=== PATIENT | female | born 1950 | race Hispanic/Latino ===

== ENCOUNTER 2017-01-06 09:38 | Outpatient (CLI) | payer MEDICARE ==
[2017-01-06 10:32] LABS: Anion Gap 17 mmol/L; BUN/Creatinine Ratio 23; Blood Urea Nitrogen 21 mg/dL (7-17); Calcium 9.2 mg/dL (8.4-10.2); Carbon Dioxide 24 mmol/L (22-30); Chloride 106.3 mmol/L (98-107); Glucose 164 mg/dL (65-100); Potassium 4.7 mmol/L (3.6-5.0); Sodium 143 mmol/L (137-145)
--- NOTE | 2017-01-06 15:07 | Cat Scan Report ---
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 Focal areas of calcification in the mass. Superior extent of mass not visualized. 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 Normal aorta and pulmonary arteries. No mediastinal adenopathy. No pleural or pericardial effusion. The visualized portion of the superior vena cava is limited and there is no definite evidence of thrombosis. Calcific mass is identified at the right lung anteriorly and posteriorly at the lower lobe. Seen on series 2 image 69. There is right lower lobe pleural-based calcified 4 cm diameter mass identified. Impression: No definite evidence of superior vena cava thrombosis or obstruction. Additional findings as detailed above.
== END 2017-01-06 09:39 | disposition home or self-care (01) ==
LOC: CT 09:38
PROVIDERS: ATTEND Surgery Vascular Surgery
DX: I82.211 Chronic embolism and thrombosis of superior vena cava (principal); R91.8 Other nonspecific abnormal finding of lung field; E04.9 Nontoxic goiter, unspecified
CPT/HCPCS: 36415; 71260; 80048; Q9967

== ENCOUNTER 2017-07-13 05:48 | Day surgery (SDC) | payer MEDICARE ==
[~2017-07-13 05:48] MED LIST: ANCEF/STERILE WATER 2 GM/20 ML IV NR
[2017-07-13] MEDS ORDERED: NACL BACTERIOSTATIC INFILTRATI ONE (06:51)
[2017-07-13] MEDS ORDERED: DILAUDID IV PRN ×2 (07:33)
[2017-07-13] MEDS ORDERED: DEMEROL IV PRN (07:33)
[2017-07-13] MEDS ORDERED: NARCAN 0.4 MG/1 ML IV PRN (07:33)
[2017-07-13] MEDS ORDERED: ZOFRAN IV PRN (07:33)
[2017-07-13] MEDS ORDERED: TORADOL IV PRN (07:33)
--- NOTE | 2017-07-13 07:33 | Anesthesia Consultation ---
Anesthesia Consult and Med Hx Date of service: 07/13/17 - Airway Anesthetic Teeth Evaluation: Poor ROM Head & Neck: Adequate Mental/Hyoid Distance: Adequate Mallampati Class: Class III Intubation Access Assessment: Probably Good - Pulmonary Exam CTA: Yes - Cardiac Exam Cardiac Exam: RRR - Pre-Operative Health Status ASA Pre-Surgery Classification: ASA3 Proposed Anesthetic Plan: General - Pulmonary Hx Smoking: No SOB: Yes (RELATED TO ASCITES IN ABDOMEN;) Hx Sleep Apnea: No (RENA PRE SCREEN HIGH RISK) - Cardiovascular System Hx Hypertension: Yes (X 25 YRS) - Central Nervous System Hx Psychiatric Problems: No - Endocrine Hx Cirrhosis: Yes (2006 WITH ASCITES/LIVER TRANSPLANT 2016) - Hematic Hx Anemia: Yes (NOT RECENT) - Other Systems Hx Cancer: Yes
--- NOTE | 2017-07-13 07:33 | Anesthesia Day of Surgery ---
Anesthesia Day of Surgery - Day of Surgery Patient Examined: Yes Patient H&P Reviewed: Yes Patient is NPO: Yes
[2017-07-13] MEDS ORDERED: VERSED IV NR (08:00)
[2017-07-13] MEDS ORDERED: LACTATED RINGERS 1,000 ML IV SCH (08:00)
[2017-07-13] MEDS ORDERED: DIPRIVAN 10 MG/ML IV ONE (08:20)
[2017-07-13] MEDS ORDERED: XYLOCAINE MPF 2% ONE (08:36)
[2017-07-13] MEDS ORDERED: SUBLIMAZE ONE (08:37)
--- NOTE | 2017-07-13 10:15 | XRay Report ---
ABDOMEN RADIOGRAPH INDICATION: Kidney stone. COMPARISON: None similar. FINDINGS: Frontal abdominal radiograph demonstrates few right upper quadrant surgical clips. Grossly nonobstructive bowel gas pattern with a nonspecific 3 cm caliber air-containing small bowel segment in the left lower quadrant. No definite focal suspicious calcifications in the expected location of the kidneys. Grossly intact bones. CONCLUSION: Findings, as above. Thank you for the opportunity to participate in this patient's care.
--- NOTE | 2017-07-13 12:51 | Short Stay Summary ---
Short Stay Documentation Date of service: 07/13/17 - History H&P: obtained from office - Allergies and Medications Current Medications: Allergies Tetanus Vaccines and Toxoid [Tetanus Vaccines & Toxoid] Allergy (Severe, Verified 07/03/17 16:29) Swelling bacitracin [From Neosporin Plus] Allergy (Verified 07/03/17 16:29) Swelling neomycin [From Neosporin Plus] Allergy (Verified 07/03/17 16:29) Swelling polymyxin B [From Neosporin Plus] Allergy (Verified 07/03/17 16:29) Swelling pramoxine [From Neosporin Plus] Allergy (Verified 07/03/17 16:29) Swelling Sulfa (Sulfonamide Antibiotics) Allergy (Verified 07/03/17 16:29) Rash sulfamethoxazole [From Bactrim] Allergy (Verified 07/03/17 16:29) Rash trimethoprim [From Bactrim] Allergy (Verified 07/03/17 16:29) Rash Home Medications Medication Instructions Recorded Confirmed Last Taken Type Cetirizine HCl [ZyrTEC] 10 mg PO DAILY 12/18/14 07/03/17 07/12/17 History Aspirin [Lo-Dose Aspirin EC] 81 mg PO DAILY 07/03/17 07/13/17 1 Week Ago History ~07/06/17 Biotin 10,000 mcg PO DAILY 07/03/17 07/03/17 07/13/17 04:30 History Cholecalciferol (Vitamin D3) 2,000 unit PO DAILY 07/03/17 07/03/17 07/13/17 04: 30 History [Vitamin D3] Insulin Aspart [NovoLOG Flexpen] 12 unit SUB-Q QHS 07/03/17 07/03/17 07/12/17 History Insulin Aspart [NovoLOG Flexpen] 16 units SQ QAC 07/03/17 07/03/17 07/12/17 History Insulin Glargine,Hum.rec.anlog 30 units SQ QAM 07/03/17 07/03/17 07/12/17 History [Lantus] Insulin Glargine,Hum.rec.anlog 40 units SQ QHS 07/03/17 07/03/17 07/12/17 History [Lantus] Lisinopril [Zestril] 10 mg PO DAILY 07/03/17 07/03/17 07/13/17 04:30 History Magnesium Oxide [Magnesium] 800 mg PO BID 07/03/17 07/03/17 07/13/17 04:30 History Multivit-Min/FA/Lycopen/Lutein 1 each PO DAILY 07/03/17 07/03/17 07/13/17 04:30 History [Centrum Silver Tablet] Mycophenolate [Cellcept] 500 mg PO BID 07/03/17 07/03/17 07/13/17 11:00 History NovoLOG Flexpen 10 unit SUB-Q QAM 07/03/17 07/03/17 07/12/17 History Pravastatin [Pravachol] 20 mg PO QHS 07/03/17 07/03/17 07/13/17 04:30 History Tacrolimus [Prograf] 3 mg PO BID 07/03/17 07/03/17 07/13/17 11:00 History Active Medications Cefazolin Sodium (Ancef/Sterile Water 2 Gm/20 Ml) 2 gm IV PREOP NR Stop: 07/13/17 23:59 Hydromorphone HCl (Dilaudid) 0.25 mg IV Q10MIN PRN PRN Reason: Pain, Moderate (4-6) Stop: 07/13/17 16:00 Hydromorphone HCl (Dilaudid) 0.5 mg IV Q10MIN PRN PRN Reason: Pain , Severe (7-10) Stop: 07/13/17 16:00 Lactated Ringer's (Lactated Ringers) 1,000 mls @ 100 mls/hr IV DIRECT RACHELLE Last Admin: 07/13/17 08:15 Dose: 100 mls/hr Ketorolac Tromethamine (Toradol) 15 mg IV ONCE PRN PRN Reason: Pain, Mild (1-3) Stop: 07/13/17 16:00 Meperidine HCl (Demerol) 25 mg IV ONCE PRN PRN Reason: Shivering Stop: 07/13/17 16:00 Midazolam HCl (Versed) 2 mg IV PREOP NR Stop: 07/13/17 23:59 Last Admin: 07/13/17 08:20 Dose: 2 mg Naloxone HCl (Narcan 0.4 Mg/1 Ml) 0.1 mg IV Q2MIN PRN PRN Reason: Res Rate </= 8 or 02 SAT < 92% Ondansetron HCl (Zofran) 4 mg IV ONCE PRN PRN Reason: Nausea And Vomiting Stop: 07/13/17 16:00 - Brief post op/procedure progress note Date of procedure: 07/13/17 Pre-op diagnosis: right renal stones Post-op diagnosis: same Procedure: right renal eswl lp Anesthesia: GETA Findings: good vis Surgeon: RICH CHRISTIANSON Estimated blood loss: minimal Pathology: none Condition: stable - Hospital course Hospital course: [facility]pac[facility]ome - Disposition Condition at discharge: Good Disposition: DC-01 TO HOME OR SELFCARE Short Stay Discharge Plan Activity: advance as tolerated Diet: advance as tolerated Follow up with: MEGGAN LANDEROS MD [Staff Physician] - 7 Days
[2017-07-13 13:52] VITALS: BP 134/68
--- NOTE | 2017-08-16 21:07 | Operative Report ---
PREOPERATIVE DIAGNOSIS: Right renal stones. POSTOPERATIVE DIAGNOSIS: Right renal stones. PROCEDURE: Right renal lower pole ESWL. ANESTHESIA: General. FINDINGS: Good visualization. SURGEON: Bennie Rubin M.D. ESTIMATED BLOOD LOSS: Minimal. PATHOLOGY: None. CONDITION: Stable. CLINICAL INDICATIONS: The patient was counseled RCBA, antibiotics, SCDs. She had been evaluated by our transplant team and the patient requested aggressive treatment to eliminate any sources of infection. She was scheduled for this procedure and presented for right renal ESWL. DESCRIPTION OF PROCEDURE: The patient was transferred to OR suite, in supine position, anesthesia, prepped and draped in standard fashion. Biplanar fluoroscopy was used to locate the stone, was in the lower pole on the right side and was visualized with good visualization. A total of 2500 shocks were delivered with intermittent repositioning done as necessary, short period at 5 kilovolts. At the end of the procedure, there was decreased density of the stone. The patient was awakened and transferred to PACU in good and stable condition. JOB# [id number] ATS/NTS
== END 2017-07-13 13:56 | disposition home or self-care (01) ==
LOC: OR 05:48
PROVIDERS: ATTEND Urology
DX: N20.0 Calculus of kidney (principal); K74.60 Unspecified cirrhosis of liver; I10 Essential (primary) hypertension; Z94.4 Liver transplant status; Z88.2 Allergy status to sulfonamides; Z88.1 Allergy status to other antibiotic agents; Z88.7 Allergy status to serum and vaccine; Z88.8 Allergy status to other drugs, medicaments and biological substances; Z79.82 Long term (current) use of aspirin; Z79.4 Long term (current) use of insulin
CPT/HCPCS: 36415; 50590; 74018; 82962; 84132; J0690; J2250; J2704; J3010; J7120